=== PATIENT | male | born 1980 | race Caucasian/White ===

== ENCOUNTER 2017-06-20 15:59 | Emergency (ER) | payer OTHER ==
[2017-06-20 16:11] VITALS: BP 146/98; PULSE 74; RESP 16; TEMP 98.4; O2SAT 100
--- NOTE | 2017-06-20 19:20 | ED PDOC ---
HPI: CCC, URI, Sore Throat Time Seen by Provider: 06/20/17 16:17 Chief Complaint (Nursing): ENT Problem Chief Complaint (Provider): Sore throat x 1 month History Per: Patient History/Exam Limitations: no limitations Onset/Duration Of Symptoms: Days Current Symptoms Are (Timing): Still Present Additional Complaint(s): 37 yo male with no medical problems presents with sore throat for 1 month. Pt was seen by PMD twice and finished a course of azithromycin and amoxicillin. Pt states it feels slightly better when on the antibiotics but as soon as he stops the pain returns. Pt states he was told to come to the ER for evaluation. Past Medical History Reviewed: Historical Data, Nursing Documentation, Vital Signs Vital Signs: Last Vital Signs Temp 98.4 F 06/20/17 16:08 Pulse 74 06/20/17 16:08 Resp 16 06/20/17 16:08 BP 146/98 H 06/20/17 16:08 Pulse Ox 100 06/20/17 16:08 - Medical History PMH: No Chronic Diseases - Surgical History Surgical History: No Surg Hx - Family History Family History: States: No Known Family Hx - Living Arrangements Living Arrangements: With Family - Social History Current smoker - smoking cessation education provided: No - Home Medications Home Medications: Ambulatory Orders Medication Instructions Recorded Fexofenadine/Pseudoephedrine 1 each PO BID PRN #12 tab.er.12h 06/20/17 [Dasia-D 12 Hour Tablet] - Allergies Allergies/Adverse Reactions: Allergies Allergy/AdvReac Type Severity Reaction Status Date / Time No Known Allergies Allergy Verified 06/20/17 16:12 Review of Systems ROS Statement: Except As Marked, All Systems Reviewed And Found Negative Constitutional: Negative for: Fever, Chills Respiratory: Negative for: Cough Gastrointestinal: Negative for: Nausea, Vomiting, Abdominal Pain Neurological: Negative for: Weakness Physical Exam - Reviewed Nursing Documentation Reviewed: Yes Vital Signs Reviewed: Yes - Physical Exam Appears: Positive for: Well, Non-toxic, No Acute Distress Head Exam: Positive for: ATRAUMATIC, NORMAL INSPECTION, NORMOCEPHALIC Skin: Positive for: Normal Color, Warm, DRY Eye Exam: Positive for: Normal appearance ENT: Positive for: Normal ENT Inspection Neck: Positive for: Normal, Painless ROM Cardiovascular/Chest: Positive for: Regular Rate, Rhythm Respiratory: Positive for: Normal Breath Sounds. Negative for: Accessory Muscle Use, Respiratory Distress Gastrointestinal/Abdominal: Positive for: Normal Exam, Bowel Sounds, Soft. Negative for: Tenderness Back: Positive for: Normal Inspection Extremity: Positive for: Normal ROM Neurologic/Psych: Positive for: Alert, Oriented - ECG O2 Sat by Pulse Oximetry: 100 Disposition - Clinical Impression Clinical Impression: Throat pain - Patient ED Disposition Is Patient to be Admitted: No Counseled Patient/Family Regarding: Diagnosis, Need For Followup, Rx Given - Disposition Referrals: Joseph Hooper MD [Staff Provider] - Disposition: Routine/Home Disposition Time: 19:31 Condition: STABLE Prescriptions: Fexofenadine/Pseudoephedrine [Dasia-D 12 Hour Tablet] 1 each PO BID PRN #12 tab.er.12h PRN Reason: Cough And Congestion Instructions: Sore Throat, Adult (DC)
== END 2017-06-20 19:55 | disposition home or self-care (01) ==
LOC: H.ER 15:59
DX: J02.9 Acute pharyngitis, unspecified (principal)
CPT/HCPCS: 87070; 87430; 96372; 99282; J1100